=== PATIENT | female | born 1950 | race Two or more races ===

== ENCOUNTER 2016-12-31 09:27 | Emergency (ER) | payer OTHER ==
[~2016-12-31] VITALS: Ht 160 cm; Wt 94.3 kg
[2016-12-31 09:59] VITALS: BP 133/72
[2016-12-31] MEDS ORDERED: LORazepam 0.5 MG TAB PO ONE (10:15)
[2016-12-31] MEDS ORDERED: KETOROLAC TROMETH 60MG/2ML VIAL IM ONE (10:15)
== END 2016-12-31 10:56 | disposition home or self-care (01) ==
LOC: ER 09:27
DX: M19.012 Primary osteoarthritis, left shoulder (principal); E78.5 Hyperlipidemia, unspecified; E07.9 Disorder of thyroid, unspecified; M81.0 Age-related osteoporosis without current pathological fracture
CPT/HCPCS: 73030; 73060; 96372; 99284; J1885

== ENCOUNTER 2018-05-16 18:33 | Emergency (ER) | payer OTHER, MEDICAID ==
[~2018-05-16] VITALS: Ht 160 cm; Wt 86.2 kg
[2018-05-16 19:05] LABS: Basophils # (auto) 0.1 uL; Eosinophils # (auto) 0.1 uL; Lymphocytes # (auto) 1.4 uL
[2018-05-16 19:07] LABS: Basophils % (auto) 0.5 % (0.0-2.0); Eosinophils % (auto) 0.6 % (0.0-7.0); Hematocrit 36.2 % (36.0-46.0); Hemoglobin 12.1 g/dL (12.2-16.2); Lymphocytes % (auto) 13.5 % (10.0-50.0); Mean Corpuscular Hgb Conc. 33.4 g/dL (32.0-36.0); Mean Corpuscular Volume 89.8 fL (80.0-100.0); Monocytes # (auto) 0.7 uL; Monocytes % (auto) 7.3 % (0.0-12.0); Neutrophils # (auto) 7.9 uL; Neutrophils % (auto) 78.1 % (37.0-80.0); Platelet Count (auto) 662 10^3/uL (140-450); Red Blood Cells 4.03 10^6/uL (4.0-5.20); Red Cell Distribution Width 14.4 % (11.8-14.3); White Blood Cell 10.1 10^3/uL (4.4-10.8)
[2018-05-16 19:14] LABS: Albumin 2.9 g/dL (3.4-5.0); Anion Gap 5 (5-15); Blood Urea Nitrogen 16 mg/dL (7-18); Calcium 9.4 mg/dL (8.5-10.1); Carbon Dioxide 28 mmol/L (21-32); Chloride 105 mmol/L (98-107); Glucose 111 mg/dL (74-106); Magnesium 2.3 mg/dL (1.6-2.6); Potassium 4.8 mmol/L (3.5-5.1); Sodium 138 mmol/L (136-145)
[2018-05-16] MEDS ORDERED: HYDROmorphone HCL 2 MG/ML VL IV ONE (19:15)
[2018-05-16] MEDS ORDERED: ONDANSETRON HCL 4 MG/2 ML VIAL IV ONE (19:15)
[2018-05-16] MEDS ORDERED: KETOROLAC TROMETH 30 MG/ML 1ML VIAL IV ONE (19:15)
[2018-05-16 19:19] LABS: Alanine Aminotransferase 28 U/L (13-56); Alkaline Phosphatase 389 U/L (45-117); Aspartate Aminotransferase 13 U/L (15-37); BUN/Creatinine Ratio 14.2; Bilirubin, Total 0.6 mg/dL (0.2-1.0); GFR African American 62 mL/min; GFR Non-African American 51 mL/min; Total Protein 7.6 g/dL (6.4-8.2)
[2018-05-16 19:50] LABS: Urine Bacteria NONE SEEN /hpf (None Seen); Urine Blood Negative /uL (Negative); Urine Specific Gravity 1.008 (1.001-1.035); Urine WBC 4 /hpf (0 - 5)
[2018-05-16 22:37] VITALS: BP 107/61
== END 2018-05-16 22:52 | disposition home or self-care (01) ==
LOC: ER 18:34
DX: S33.5XXA Sprain of ligaments of lumbar spine, initial encounter (principal); F41.9 Anxiety disorder, unspecified; F32.9 Major depressive disorder, single episode, unspecified; K21.9 Gastro-esophageal reflux disease without esophagitis; Z87.11 Personal history of peptic ulcer disease; X58.XXXA Exposure to other specified factors, initial encounter; Y93.89 Activity, other specified; Y92.89 Other specified places as the place of occurrence of the external cause; Y99.8 Other external cause status
CPT/HCPCS: 36415; 71046; 74176; 80053; 81001; 83735; 84484; 85025; 93005; 96374; 96375; 99284; J1170; J1885; J2405

== ENCOUNTER 2018-07-09 04:58 | Emergency (ER) | payer OTHER, MEDICAID ==
[~2018-07-09] VITALS: Ht 160 cm; Wt 81.6 kg
[2018-07-09 05:21] VITALS: BP 132/72
[2018-07-09 06:30] LABS: Urine Bacteria NONE SEEN /hpf (None Seen); Urine Blood Negative /uL (Negative); Urine Specific Gravity 1.004 (1.001-1.035); Urine WBC <1 /hpf (0 - 5)
[2018-07-09] MEDS ORDERED: KETOROLAC TROMETH 60MG/2ML VIAL IM ONE (06:45)
[2018-07-09] MEDS ORDERED: HYDROcodone-ACET 7.5/325MG TAB PO ONE (07:15)
== END 2018-07-09 08:05 | disposition home or self-care (01) ==
LOC: ER 04:58
DX: M51.36 Other intervertebral disc degeneration, lumbar region (principal); M54.16 Radiculopathy, lumbar region; M43.16 Spondylolisthesis, lumbar region; K21.9 Gastro-esophageal reflux disease without esophagitis; E78.5 Hyperlipidemia, unspecified; E07.9 Disorder of thyroid, unspecified; Z90.710 Acquired absence of both cervix and uterus
CPT/HCPCS: 72100; 81001; 96372; 99284; J1885

== ENCOUNTER 2018-08-14 20:39 | Emergency (ER) | payer OTHER, MEDICAID ==
[~2018-08-14] VITALS: Ht 167.6 cm; Wt 72.6 kg
[2018-08-14 20:48] VITALS: BP 131/72
[2018-08-14] MEDS ORDERED: MEPERIDINE HCL (50 MG/ML) 1 ML VIAL IM ONE (21:45)
[2018-08-14] MEDS ORDERED: TRIAMCINOLONE 40MG/ML 1ML VIAL IM ONE (21:45)
== END 2018-08-14 22:52 | disposition home or self-care (01) ==
LOC: EDUNIT# 20:39 → ER 20:39 → EDBD 20:39 → ER 22:51
DX: M54.5 Low back pain (principal); K21.9 Gastro-esophageal reflux disease without esophagitis; E78.5 Hyperlipidemia, unspecified; E07.9 Disorder of thyroid, unspecified; Z90.710 Acquired absence of both cervix and uterus
CPT/HCPCS: 96372; 99283; J2175; J3301

== ENCOUNTER 2019-03-06 09:22 | Inpatient (IN) | payer OTHER, MEDICAID ==
[~2019-03-06] VITALS: Ht 160 cm; Wt 86.1 kg
[2019-03-06 10:00] LABS: Basophils # (auto) 0.1 uL; Basophils % (auto) 1.5 % (0.0-2.0); Eosinophils # (auto) 0.1 uL; Eosinophils % (auto) 1.9 % (0.0-7.0); Hematocrit 43.7 % (36.0-46.0); Lymphocytes # (auto) 1.1 uL; Lymphocytes % (auto) 22.8 % (10.0-50.0); Mean Corpuscular Hemoglobin 31.5 pg (28.0-32.0); Mean Corpuscular Hgb Conc. 34.3 g/dL (32.0-36.0); Mean Corpuscular Volume 91.7 fL (80.0-100.0); Monocytes # (auto) 0.4 uL; Monocytes % (auto) 7.7 % (0.0-12.0); Neutrophils # (auto) 3.3 uL; Neutrophils % (auto) 66.1 % (37.0-80.0); Nucleated Red Blood Cells % 0.1 %; Platelet Count (auto) 296 10^3/uL (140-450); Red Blood Cells 4.77 10^6/uL (4.0-5.20); Red Cell Distribution Width 14.4 % (11.8-14.3)
[2019-03-06 10:16] LABS: Albumin 4.2 g/dL (3.4-5.0); Anion Gap 8 (5-15); Aspartate Aminotransferase 19 U/L (15-37); BUN/Creatinine Ratio 19.8; Blood Urea Nitrogen 16 mg/dL (7-18); Calcium 9.3 mg/dL (8.5-10.1); Carbon Dioxide 24 mmol/L (21-32); Chloride 109 mmol/L (98-107); GFR African American 90 mL/min; GFR Non-African American 75 mL/min; Glucose 97 mg/dL (74-106); Magnesium 2.1 mg/dL (1.6-2.6); Potassium 4.2 mmol/L (3.5-5.1); Sodium 141 mmol/L (136-145)
[2019-03-06 10:28] LABS: Alanine Aminotransferase 24 U/L (13-56); Alkaline Phosphatase 435 U/L (45-117); Bilirubin, Total 1.4 mg/dL (0.2-1.0); Total Protein 8.2 g/dL (6.4-8.2)
[2019-03-06 11:34] LABS: Urine Bacteria FEW /hpf (None Seen); Urine Blood Negative /uL (Negative); Urine Specific Gravity 1.014 (1.001-1.035); Urine WBC <1 /hpf (0 - 5)
[2019-03-06] MEDS ORDERED: TEMAZEPAM 15 MG CAP PO PRN (14:30)
[2019-03-06] MEDS ORDERED: ALUM & MAG HYDROX-SIMETH LIQ(MAALOX) 30 ML PO PRN (14:30)
[2019-03-06] MEDS ORDERED: hydrALAZINE HCL 20 MG/ML VL IV PRN (14:30)
[2019-03-06] MEDS ORDERED: MORPHINE SULF INJ 2 MG/ML SYRINGE 1ML IV PRN (14:30)
[2019-03-06] MEDS ORDERED: NITROGLYCERIN 0.4 MG SL TAB SL PRN (14:30)
[2019-03-06] MEDS ORDERED: DOCUSATE SOD 100 MG CAP PO PRN (14:30)
[2019-03-06] MEDS ORDERED: ASPirin-EC 325mg tab PO ONE (14:30)
[2019-03-06] MEDS ORDERED: POLYETHYLENE GLYCOL 17 GM PWDR PO PRN (14:30)
[2019-03-06] MEDS ORDERED: ACETAMINOPHEN 325 MG TAB PO PRN (14:30)
[2019-03-06] MEDS ORDERED: ATORVASTATIN 20 MG TAB PO ONE (14:30)
[2019-03-06] MEDS ORDERED: METOPROLOL TARTRATE 1MG/1ML-5ML VIAL IV PRN (14:30)
[2019-03-06] MEDS ORDERED: ONDANSETRON HCL 4 MG/2 ML VIAL IV PRN (14:30)
[2019-03-06 14:43] LABS: Cholesterol 211 mg/dL (< 200)
[2019-03-06 14:45] LABS: HDL Cholesterol 91 mg/dL (40-59); LDL Cholesterol 104 mg/dL (< 100); Triglycerides 113 mg/dL (< 150)
[2019-03-06 15:20] LABS: Alcohol, Urine < 3.0 mg/dL (0-5); Amphetamine Screen, Urine NEGATIVE (NEGATIVE); Barbiturate Scree,Urine NEGATIVE (NEGATIVE); Benzodiazephine Screen, Urine NEGATIVE (NEGATIVE); Cannabinoid Screen, Urine NEGATIVE (NEGATIVE); Cocaine Screen, Urine NEGATIVE (NEGATIVE); Opiate Scree,Urine NEGATIVE (NEGATIVE); Phencyclidine Screen, Urine NEGATIVE (NEGATIVE)
--- NOTE | 2019-03-06 15:31 | NUR ---
PATIENT ARRIVED TO UNIT PATIENT IS ALERT AND ORIENTED X4. ORIENTED PATIENT TO UNIT, STAFF, CALL LIGHT, VISITING HOURS AND POC. PATIENT VERBALIZED UNDERSTANDING. BED IS IN LOWEST LOCKED POSITION CALL LIGHT WITH IN REACH. PATIENT DENIES ANY CHEST PAIN, AND SOB AT THIS TIME. WILL CONTINUE TO MONITOR
[2019-03-06 16:49] VITALS: BP 129/65
[2019-03-06] MEDS ORDERED: RED1CAP PO (17:53)
[2019-03-06] MEDS ORDERED: ASPI-404 PO (17:53)
[2019-03-06] MEDS ORDERED: CHOL20007 PO (17:53)
[2019-03-06] MEDS ORDERED: LEVO88TA4 PO (17:53)
--- NOTE | 2019-03-06 19:18 | NUR ---
Opening Shift Note Assumed care of patient, awake and alert x4. No S/S of distress/SOB or pain. Call light is within reach, side rail sup x2, bed is in lowest position. Family is at bedside. Instructed on POC and to call for assist PRN. All questions and concerns answered, will continue to monitor for changes Q1hr and PRN.
[2019-03-06 22:00] VITALS: BP 107/65
[2019-03-07 05:00] VITALS: BP 134/83
[2019-03-07 08:30] VITALS: BP 114/72
[2019-03-07] MEDS: ASPirin-EC 81 mg tab PO SCH (11:10)
[2019-03-07 12:30] VITALS: BP 136/81
[2019-03-07] MEDS ORDERED: LEVOTHYROXINE SODIUM 88 MCG TAB PO ONE (13:30)
[2019-03-07] MEDS ORDERED: KETOROLAC TROMETH 30 MG/ML 1ML VIAL IV PRN (13:30)
[2019-03-07 14:38] LABS: Basophils # (auto) 0.1 uL; Basophils % (auto) 1.1 % (0.0-2.0); Eosinophils # (auto) 0.1 uL; Hemoglobin 14.2 g/dL (12.2-16.2); Lymphocytes # (auto) 1.5 uL; Mean Corpuscular Hgb Conc. 33.7 g/dL (32.0-36.0); Mean Corpuscular Volume 92.1 fL (80.0-100.0); Monocytes # (auto) 0.5 uL; Monocytes % (auto) 8.4 % (0.0-12.0); Neutrophils # (auto) 3.3 uL; Neutrophils % (auto) 61.5 % (37.0-80.0); Nucleated Red Blood Cells % 0.1 %; Platelet Count (auto) 292 10^3/uL (140-450); Red Blood Cells 4.56 10^6/uL (4.0-5.20); Red Cell Distribution Width 14.2 % (11.8-14.3); White Blood Cell 5.4 10^3/uL (4.4-10.8)
[2019-03-07 15:03] LABS: Albumin 3.5 g/dL (3.4-5.0)
[2019-03-07 15:05] LABS: BUN/Creatinine Ratio 16.7
[2019-03-07 15:08] LABS: Bilirubin, Total 1.1 mg/dL (0.2-1.0); Total Protein 7.2 g/dL (6.4-8.2)
[2019-03-07] MEDS ORDERED: KETOROLAC TROMETH 30 MG/ML 1ML VIAL IV ONE (16:30)
[2019-03-07 17:04] VITALS: BP 123/72
--- NOTE | 2019-03-07 18:50 | NUR ---
PT IN HIGH FOWLERS, REPORTS COMFORT AT MOMENT, DENIES CP, HEADACHE. EFFORTLESS BREATHING ON ROOM AIR. BED LOCKED AND IN LOWEST POSITION, CALL LIGHT WITHIN REACH.
--- NOTE | 2019-03-07 20:00 | NUR ---
OPENING SHIFT NOTE: PATIENT RESTING IN BED. SHE IS ALER AND ORIENTED X4. HAS ONLY A MILD COMPLAINT OF LOWER BACK PAIN IN WHICH A HOT PACK WAS GIVEN. NO SHORTNESS OF BREATH NOTED. BED IS LOCKED IN LOWEST POSITION WITH SIDE RAILS UP X2. CALL LIGHT IS WITHIN REACH. WILL CONTINUE TO MONITOR.
[2019-03-07] MEDS: ATORVASTATIN 20 MG TAB PO SCH (21:05)
[2019-03-07 22:00] VITALS: BP 99/68
[2019-03-08] VITALS (7 sets, daily range): BP systolic 109–153; BP diastolic 66–83
[2019-03-08] MEDS: LEVOTHYROXINE SODIUM 88 MCG TAB PO SCH (06:44)
[2019-03-08] MEDS ORDERED: ADENOSINE 72 MG in GIVE UN-DILUTED 0 ML IV STA (08:27)
[2019-03-08] MEDS: ASPirin-EC 81 mg tab PO SCH (09:53)
[2019-03-08] MEDS: ATORVASTATIN 20 MG TAB PO SCH (09:54)
[2019-03-08 09:56] LABS: Folate (Folic Acid) > 24.00 ng/mL (5.38-24)
[2019-03-08] MEDS: KETOROLAC TROMETH 30 MG/ML 1ML VIAL IV PRN (22:44)
[2019-03-09 05:00] VITALS: BP 136/80
[2019-03-09] MEDS: LEVOTHYROXINE SODIUM 88 MCG TAB PO SCH (06:30)
[2019-03-09 06:40] LABS: Albumin 3.5 g/dL (3.4-5.0); Potassium 4.5 mmol/L (3.5-5.1)
[2019-03-09 06:46] LABS: BUN/Creatinine Ratio 20.9; Bilirubin, Total 1.1 mg/dL (0.2-1.0); Calcium 9.1 mg/dL (8.5-10.1)
[2019-03-09 08:20] VITALS: BP 114/79
[2019-03-09 09:00] VITALS: BP 114/79
[2019-03-09] MEDS: ATORVASTATIN 20 MG TAB PO SCH (09:51)
[2019-03-09] MEDS: ASPirin-EC 81 mg tab PO SCH (09:51)
[2019-03-09] MEDS: SODIUM CHLORIDE 0.9% 1,000 ML IV SCH (10:52)
[2019-03-09 12:56] VITALS: BP 132/74
--- NOTE | 2019-03-09 14:52 | NUR ---
Nutrition Assessment Notes please see attached link for complete assessment Est. Needs ABW [id number] kcal (23-25 kcal/kgBW), 69-75 gms pro (1.0-1.1 gms/kgBW). Will continue to monitor pertinent labs and reassess nutrient need prn Addendum: 03/09/19 at [address] Amended: Links added.
[2019-03-09 16:50] VITALS: BP 115/70
--- NOTE | 2019-03-09 19:00 | NUR ---
Opening Shift Note Assumed care of patient, awake and alert. No S/S of distress/SOB or pain. Instructed on POC and to call for assist PRN, will continue to monitor for changes Q1hr and PRN.
[2019-03-09 22:32] VITALS: BP 106/78
[2019-03-10 05:37] VITALS: BP 95/4
[2019-03-10] MEDS: SODIUM CHLORIDE 0.9% 1,000 ML IV SCH (06:27)
[2019-03-10] MEDS: LEVOTHYROXINE SODIUM 88 MCG TAB PO SCH (06:30)
[2019-03-10 06:41] LABS: Basophils # (auto) 0 uL; Basophils % (auto) 0.6 % (0.0-2.0); Eosinophils # (auto) 0.2 uL; Eosinophils % (auto) 3.4 % (0.0-7.0); Hematocrit 43.2 % (36.0-46.0); Hemoglobin 14.5 g/dL (12.2-16.2); Lymphocytes # (auto) 1.1 uL; Lymphocytes % (auto) 18.6 % (10.0-50.0); Mean Corpuscular Hemoglobin 31.2 pg (28.0-32.0); Mean Corpuscular Hgb Conc. 33.5 g/dL (32.0-36.0); Mean Corpuscular Volume 93.2 fL (80.0-100.0); Monocytes # (auto) 0.6 uL; Monocytes % (auto) 9.6 % (0.0-12.0); Neutrophils % (auto) 67.8 % (37.0-80.0); Nucleated Red Blood Cells % 0.1 %; Platelet Count (auto) 296 10^3/uL (140-450); Red Blood Cells 4.63 10^6/uL (4.0-5.20); Red Cell Distribution Width 14.1 % (11.8-14.3); White Blood Cell 5.9 10^3/uL (4.4-10.8)
[2019-03-10 06:44] LABS: INR < 0.93 (0.9-1.15); Partial Thromboplastin Time 25.6 sec (23.64-32.05)
[2019-03-10 06:50] LABS: Albumin 3.8 g/dL (3.4-5.0); Calcium 9.3 mg/dL (8.5-10.1); Potassium 4.1 mmol/L (3.5-5.1)
[2019-03-10 06:52] LABS: BUN/Creatinine Ratio 18.3
[2019-03-10 06:55] LABS: Bilirubin, Total 1.4 mg/dL (0.2-1.0); Total Protein 7.7 g/dL (6.4-8.2)
[2019-03-10 08:00] VITALS: BP 129/77
[2019-03-10 09:00] VITALS: BP 129/77
[2019-03-10] MEDS: ATORVASTATIN 20 MG TAB PO SCH (09:04)
[2019-03-10] MEDS: ASPirin-EC 81 mg tab PO SCH (09:04)
[2019-03-10] MEDS ORDERED: LIDOCAINE 2%HCL (LOCAL ANESTH.) INJ 20ML MDV ONE (09:08)
[2019-03-10] MEDS ORDERED: IOHEXOL 350 MG/ML 100ML IJ ONE (09:08)
[2019-03-10] MEDS ORDERED: ANGIOMAX 250 MG VIAL IV ONE (09:37)
[2019-03-10] MEDS ORDERED: NITROGLYCERIN 5MG/ML 10ML VIAL IV ONE (09:37)
[2019-03-10] MEDS ORDERED: SODIUM CHL 0.9% 0 ML ONE (09:37)
[2019-03-10] MEDS ORDERED: fentaNYL CITRATE 100 MCG/2 ML VL ONE (09:37)
[2019-03-10] MEDS ORDERED: VERAPAMIL 2.5MG/ML INJ 2ML VIAL IV ONE (09:37)
[2019-03-10] MEDS ORDERED: MIDAZOLAM HCL 1MG/1ML-2 ML VIAL ONE (09:37)
[2019-03-10 13:00] VITALS: BP 117/78
[2019-03-10 17:02] VITALS: BP 115/69
[2019-03-10 22:00] VITALS: BP 101/70
[2019-03-11] MEDS: SODIUM CHLORIDE 0.9% 1,000 ML IV SCH (02:36)
[2019-03-11] MEDS: KETOROLAC TROMETH 30 MG/ML 1ML VIAL IV PRN (02:43)
[2019-03-11 05:00] VITALS: BP 102/69
[2019-03-11] MEDS: LEVOTHYROXINE SODIUM 88 MCG TAB PO SCH (06:30)
--- NOTE | 2019-03-11 07:15 | NUR ---
Opening Shift Report Received report on the patient. Awake lying in bed. Patient shows no signs of distress at this time. Discussed plan of care with the patient. Bed in lowest position, side rails up X2, and call light is within reach. Will continue to monitor.
[2019-03-11 09:00] VITALS: BP 120/73
[2019-03-11] MEDS: ATORVASTATIN 20 MG TAB PO SCH (10:00)
[2019-03-11] MEDS: ASPirin-EC 81 mg tab PO SCH (10:01)
[2019-03-11 11:21] VITALS: BP 120/73
--- NOTE | 2019-03-11 13:13 | NUR ---
Discharge instructions given as ordered. Encourage to follow up with Primary healthcare provider as instructed. All questions and concerns addressed. Patient verbalized understanding. Medication reconciliation form completed and copy given to patient. IV removed with catheter intact, pressure dressing applied. Telemetry unit returned to ICU. Patient taken to vehicle via ambulation with all personal belongings, accompanied by family member. No distress noted at time of departure.
== END 2019-03-11 13:00 | disposition home or self-care (01) | DRG 287 ==
LOC: ER 09:22 → TELE 09:23 → TELE-WESTW 15:31
PROVIDERS: ADMIT Internal Medicine; ATTEND Internal Medicine
PROC: 4A023N7 Measurement of Cardiac Sampling and Pressure, Left Heart, Percutaneous Approach (ICD-10-PCS; principal; 2019-03-10)
PROC: B2111ZZ Fluoroscopy of Multiple Coronary Arteries using Low Osmolar Contrast (ICD-10-PCS; 2019-03-10)
PROC: B2151ZZ Fluoroscopy of Left Heart using Low Osmolar Contrast (ICD-10-PCS; 2019-03-10)
PROC: 4A033BC Measurement of Arterial Pressure, Coronary, Percutaneous Approach (ICD-10-PCS; 2019-03-10)
DX: I25.10 Atherosclerotic heart disease of native coronary artery without angina pectoris (principal); M48.56XA Collapsed vertebra, not elsewhere classified, lumbar region, initial encounter for fracture; E78.5 Hyperlipidemia, unspecified; I10 Essential (primary) hypertension; F32.9 Major depressive disorder, single episode, unspecified; F41.9 Anxiety disorder, unspecified; K21.9 Gastro-esophageal reflux disease without esophagitis; E03.9 Hypothyroidism, unspecified; E66.9 Obesity, unspecified; Z68.33 Body mass index [BMI] 33.0-33.9, adult; Z90.710 Acquired absence of both cervix and uterus; Z79.899 Other long term (current) drug therapy
CPT/HCPCS: 36415; 70450; 71046; 78452; 80053; 80061; 80307; 81001; 82607; 82746; 83036; 83735; 84443; 84484; 85025; 85610; 85730; 86850; 86900; 86901; 93005; 93017; 93306; 93458; 93571; 99152; G0378; J0153; J1885; J2250; J2405; J3490

== ENCOUNTER 2019-03-25 17:07 | Emergency (ER) | payer OTHER, MEDICAID ==
[~2019-03-25] VITALS: Ht 160 cm; Wt 86.2 kg
[~2019-03-25 17:07] MED LIST: ASPI-404 PO; CHOL20007 PO; LEVO88TA4 PO; RED1CAP PO
[2019-03-25 17:33] LABS: Basophils # (auto) 0.1 uL; Basophils % (auto) 1.3 % (0.0-2.0); Eosinophils # (auto) 0.1 uL; Eosinophils % (auto) 2.4 % (0.0-7.0); Hematocrit 41.8 % (36.0-46.0); Hemoglobin 14.5 g/dL (12.2-16.2); Lymphocytes # (auto) 1.4 uL; Lymphocytes % (auto) 23.3 % (10.0-50.0); Mean Corpuscular Hemoglobin 31.9 pg (28.0-32.0); Mean Corpuscular Hgb Conc. 34.8 g/dL (32.0-36.0); Mean Corpuscular Volume 91.6 fL (80.0-100.0); Monocytes # (auto) 0.4 uL; Monocytes % (auto) 7.2 % (0.0-12.0); Neutrophils % (auto) 65.8 % (37.0-80.0); Platelet Count (auto) 322 10^3/uL (140-450); Red Blood Cells 4.56 10^6/uL (4.0-5.20); White Blood Cell 6.1 10^3/uL (4.4-10.8)
[2019-03-25 17:53] LABS: Albumin 3.9 g/dL (3.4-5.0); Anion Gap 8 (5-15); Blood Urea Nitrogen 6 mg/dL (7-18); Calcium 9.2 mg/dL (8.5-10.1); Carbon Dioxide 26 mmol/L (21-32); Chloride 110 mmol/L (98-107); Glucose 108 mg/dL (74-106); Potassium 3.7 mmol/L (3.5-5.1); Sodium 144 mmol/L (136-145)
[2019-03-25 17:59] LABS: Alanine Aminotransferase 25 U/L (13-56); Alkaline Phosphatase 558 U/L (45-117); Aspartate Aminotransferase 26 U/L (15-37); BUN/Creatinine Ratio 7.6; Bilirubin, Total 0.8 mg/dL (0.2-1.0); GFR African American 93 mL/min; GFR Non-African American 77 mL/min; Total Protein 7.8 g/dL (6.4-8.2)
[2019-03-26 02:00] VITALS: BP 108/70
== END 2019-03-26 03:33 | disposition home or self-care (01) ==
LOC: ER 17:07
DX: F41.9 Anxiety disorder, unspecified (principal); I10 Essential (primary) hypertension; R51 Headache; Z90.710 Acquired absence of both cervix and uterus
CPT/HCPCS: 36415; 80053; 84484; 85025

== ENCOUNTER 2019-07-02 12:53 | Emergency (ER) | payer OTHER, MEDICAID ==
[~2019-07-02] VITALS: Ht 152.4 cm; Wt 86.2 kg
[2019-07-02 14:55] LABS: Basophils # (auto) 0 uL; Basophils % (auto) 0.5 % (0.0-2.0); Eosinophils # (auto) 0 uL; Eosinophils % (auto) 0.4 % (0.0-7.0); Hematocrit 36.1 % (36.0-46.0); Hemoglobin 12.2 g/dL (12.2-16.2); Lymphocytes # (auto) 0.8 uL; Lymphocytes % (auto) 9.8 % (10.0-50.0); Mean Corpuscular Hemoglobin 30.2 pg (28.0-32.0); Mean Corpuscular Hgb Conc. 33.9 g/dL (32.0-36.0); Mean Corpuscular Volume 89.1 fL (80.0-100.0); Monocytes # (auto) 1.2 uL; Monocytes % (auto) 15.8 % (0.0-12.0); Neutrophils # (auto) 5.7 uL; Neutrophils % (auto) 73.5 % (37.0-80.0); Nucleated Red Blood Cells % 0.1 %; Platelet Count (auto) 278 10^3/uL (140-450); Red Blood Cells 4.05 10^6/uL (4.0-5.20); Red Cell Distribution Width 13.9 % (11.8-14.3); White Blood Cell 7.8 10^3/uL (4.4-10.8)
[2019-07-02 15:13] LABS: Anion Gap 8 (5-15); Blood Urea Nitrogen 19 mg/dL (7-18); Calcium 8.8 mg/dL (8.5-10.1); Carbon Dioxide 24 mmol/L (21-32); Chloride 103 mmol/L (98-107); Glucose 122 mg/dL (74-106); Magnesium 2.7 mg/dL (1.6-2.6); Potassium 3.5 mmol/L (3.5-5.1); Sodium 135 mmol/L (136-145)
[2019-07-02 15:19] LABS: Alanine Aminotransferase 50 U/L (13-56); Alkaline Phosphatase 467 U/L (45-117); Aspartate Aminotransferase 19 U/L (15-37); BUN/Creatinine Ratio 13.6; Bilirubin, Total 0.9 mg/dL (0.2-1.0); GFR African American 48 mL/min; GFR Non-African American 40 mL/min; Total Protein 7.5 g/dL (6.4-8.2)
[2019-07-02 18:30] VITALS: BP 112/64
== END 2019-07-02 18:41 | disposition home or self-care (01) ==
LOC: ER 12:54
DX: R42 Dizziness and giddiness (principal); I10 Essential (primary) hypertension; Z90.710 Acquired absence of both cervix and uterus
CPT/HCPCS: 36415; 70450; 80053; 83735; 84443; 84484; 85025; 93005

== ENCOUNTER 2022-01-17 08:50 | Day surgery (SDC) | payer OTHER, MEDICAID ==
[2022-01-15 12:59] LABS: Urine Bacteria NONE SEEN /hpf (None Seen); Urine Blood Negative /uL (Negative); Urine Specific Gravity 1.008 (1.001-1.035); Urine WBC <1 /hpf (0 - 5)
[2022-01-15 13:19] LABS: Basophils # (auto) 0.1 10 ^3/uL (0-0.2); Basophils % (auto) 1.2 % (0.0-2.0); Eosinophils # (auto) 0.1 10 ^3/uL (0-0.8); Eosinophils % (auto) 2.2 % (0.0-7.0); Hematocrit 39.9 % (36.0-46.0); Lymphocytes # (auto) 1.2 10 ^3/uL (0.4-5.4); Lymphocytes % (auto) 21.5 % (10.0-50.0); Mean Corpuscular Hemoglobin 29.8 pg (28.0-32.0); Mean Corpuscular Hgb Conc. 32.7 g/dL (32.0-36.0); Mean Corpuscular Volume 91.3 fL (80.0-100.0); Monocytes # (auto) 0.5 10 ^3/uL (0-1.3); Monocytes % (auto) 9.7 % (0.0-12.0); Neutrophils # (auto) 3.5 10 ^3/uL (1.6-8.6); Neutrophils % (auto) 65.4 % (37.0-80.0); Nucleated Red Blood Cells % 0.1 %; Red Blood Cells 4.37 10^6/uL (4.0-5.20); Red Cell Distribution Width 14.3 % (11.8-14.3); White Blood Cell 5.4 10^3/uL (4.4-10.8)
[2022-01-15 13:20] LABS: INR 0.92 (0.9-1.15)
[2022-01-15 13:57] LABS: Potassium 4.2 mmol/L (3.5-5.1)
[2022-01-15 14:09] LABS: Albumin 3.5 g/dL (3.4-5.0); Bilirubin, Total 0.8 mg/dL (0.2-1.0); Calcium 9.2 mg/dL (8.5-10.1); Total Protein 7.2 g/dL (6.4-8.2)
[~2022-01-17] VITALS: Ht 152.4 cm; Wt 83.9 kg
[~2022-01-17 08:50] MED LIST changes: -ASPI-404 PO; +ASPI-543 PO; +HYDR-4072 PO; +LOSA-69 PO
[2022-01-17] MEDS ORDERED: LIDOCAINE VISCOUS 2% 15ML UD ONE (10:46)
[2022-01-17] MEDS ORDERED: fentaNYL CITRATE 100 MCG/2 ML VL ONE (10:48)
[2022-01-17] MEDS ORDERED: MIDAZOLAM HCL 2MG/2ML 2ml VIAL (1mg/ml) ONE (10:48)
[2022-01-17] MEDS ORDERED: PROPOFOL 10 MG/ML 20 ML IV ONE (10:56)
[2022-01-17] MEDS ORDERED: ONDANSETRON HCL 4 MG/2 ML VIAL IV ONE (11:20)
[2022-01-17] MEDS ORDERED: ONDANSETRON HCL 4 MG/2 ML VIAL ONE (11:23)
[2022-01-17 11:50] VITALS: BP 132/78
== END 2022-01-17 12:00 | disposition home or self-care (01) ==
LOC: GI 08:50
PROVIDERS: ATTEND Internal Medicine Gastroenterology
DX: R10.13 Epigastric pain (principal); K29.50 Unspecified chronic gastritis without bleeding; I10 Essential (primary) hypertension; I25.10 Atherosclerotic heart disease of native coronary artery without angina pectoris; E03.9 Hypothyroidism, unspecified; F32.A Depression, unspecified; G89.29 Other chronic pain; E66.9 Obesity, unspecified; F41.9 Anxiety disorder, unspecified; Z90.710 Acquired absence of both cervix and uterus; Z98.890 Other specified postprocedural states; Z79.899 Other long term (current) drug therapy; Z86.73 Personal history of transient ischemic attack (TIA), and cerebral infarction without residual deficits; Z68.37 Body mass index [BMI] 37.0-37.9, adult; Z87.891 Personal history of nicotine dependence; Z20.822 Contact with and (suspected) exposure to COVID-19
CPT/HCPCS: 36415; 43239; 80053; 81001; 85025; 85610; 85730; 88305; 88342; J2250; J2405; J2704; J3010; J7030; U0003